=== PATIENT | female | born 2000 | race African-American/Black ===

== ENCOUNTER 2021-05-09 13:25 | Emergency (ER) | payer OTHER ==
[~2021-05-09] VITALS: Ht 151.1 cm; Wt 61.3 kg
[2021-05-09 14:24] LABS: POTASSIUM 3.5 mmol/L (3.6-5.2)
[2021-05-09 14:32] LABS: PLATELET COUNT 282 K/uL (152-353)
[2021-05-09 15:17] VITALS: BP 105/60; TEMP 98.7
== END 2021-05-09 15:17 | disposition home or self-care (01) ==
LOC: ED 13:25
PROVIDERS: Emergency Medicine
DX: R53.81 Other malaise (principal); E87.6 Hypokalemia; Z32.02 Encounter for pregnancy test, result negative
CPT/HCPCS: 80048; 81000; 81025; 85027; 99283